=== PATIENT | female | born 1965 | race Caucasian/White ===

== ENCOUNTER → 2016-09-15 | Outpatient (CLI) | payer OTHER | LOC: MC.RAD 08:37 | DX: Z12.31 Encounter for screening mammogram for malignant neoplasm of breast (principal) ==

== ENCOUNTER → 2018-06-12 | Outpatient (CLI) | payer OTHER | LOC: COL.RAD 13:09 | DX: N83.202 Unspecified ovarian cyst, left side (principal); N95.0 Postmenopausal bleeding; R93.89 Abnormal findings on diagnostic imaging of other specified body structures ==

== ENCOUNTER → 2018-07-19 | Outpatient (CLI) | payer OTHER | LOC: MC.RAD 08:11 | DX: Z12.31 Encounter for screening mammogram for malignant neoplasm of breast (principal) ==

== ENCOUNTER → 2020-02-10 | Outpatient (CLI) | payer BC | LOC: MC.RAD 14:02 | DX: Z12.31 Encounter for screening mammogram for malignant neoplasm of breast (principal) ==

== ENCOUNTER 2020-08-05 08:42 | Day surgery (SDC) | payer BC ==
[~2020-08-05] VITALS: Ht 167.6 cm; Wt 117.8 kg
[2020-08-05 09:35] VITALS: BP 127/74; PULSE 64; TEMP 97.4
[2020-08-05] MEDS ORDERED: BALSALAZIDE DI750 MG PO (09:53)
[2020-08-05] MEDS ORDERED: PRILOSEC 20MG20 MG PO (09:53)
[2020-08-05] MEDS ORDERED: B-121000 MCG PO (09:54)
[2020-08-05] MEDS ORDERED: PROBIOTIC BLEN1 EACH PO (09:54)
[2020-08-05] MEDS ORDERED: MASON NATURAL1000 M1 PO (09:58)
[2020-08-05] MEDS ORDERED: MELATONIN1 MG PO (09:59)
[2020-08-05 11:40] VITALS: BP 131/87; PULSE 69; TEMP 97.1
--- NOTE | 2020-08-05 11:40 | NUR ---
Pt to [facility] via cart from OR. Pt drowsy, but awake. Pt denies pain and nausea. Right foot has acewrap dressing and post op shoe on. Right toes are warm, dry and pink with movement noted. Pt feels "pressure" to toes but not full sensation due to block. Soda given per pt request. in room. Will continue to monitor. Call light within reach.
[2020-08-05 11:55] VITALS: BP 130/75; PULSE 62
--- NOTE | 2020-08-05 11:55 | NUR ---
Pt continues to rest. Denies needs. Call light within reach.
[2020-08-05 12:10] VITALS: BP 121/71; PULSE 59
--- NOTE | 2020-08-05 12:10 | NUR ---
Muffin given per pt request. Will continue to monitor. Call light within reach.
[2020-08-05 12:25] VITALS: BP 128/72; PULSE 49
--- NOTE | 2020-08-05 12:25 | NUR ---
Pt tolerating po food and fluids without difficulties. Denies needs. Call light within reach.
[2020-08-05 12:40] VITALS: BP 129/67; PULSE 65
--- NOTE | 2020-08-05 12:40 | NUR ---
Pt up to restroom with stand by assist. Gait slow and steady. Pt voids without difficulties. Pt back to room. Call light within reach.
--- NOTE | 2020-08-05 13:00 | NUR ---
IV site discontinued with all parts intact. Discharge instructions reviewed. Pt voices understanding. Pt up to dress with assist. Call light within reach.
--- NOTE | 2020-08-05 13:20 | NUR ---
Pt escorted to private car via wheel chair. Pt accompanied home by her .
== END 2020-08-05 13:20 | disposition home or self-care (01) ==
LOC: SDCO 08:42
DX: M20.11 Hallux valgus (acquired), right foot (principal); M79.671 Pain in right foot; K21.9 Gastro-esophageal reflux disease without esophagitis; E66.01 Morbid (severe) obesity due to excess calories; K51.20 Ulcerative (chronic) proctitis without complications; E78.5 Hyperlipidemia, unspecified; N39.46 Mixed incontinence; N95.0 Postmenopausal bleeding; N95.9 Unspecified menopausal and perimenopausal disorder; F32.9 Major depressive disorder, single episode, unspecified; Z98.49 Cataract extraction status, unspecified eye; Z79.899 Other long term (current) drug therapy; Z68.41 Body mass index [BMI] 40.0-44.9, adult; Z87.891 Personal history of nicotine dependence; Z91.048 Other nonmedicinal substance allergy status; Z83.3 Family history of diabetes mellitus; Z82.49 Family history of ischemic heart disease and other diseases of the circulatory system; Z80.3 Family history of malignant neoplasm of breast; Z80.0 Family history of malignant neoplasm of digestive organs
CPT/HCPCS: J1885; J2405; J2704; J3010; J7120

== ENCOUNTER → 2020-08-17 | Outpatient (CLI) | payer BC ==
[~2020-08-17] MED LIST: B-121000 MCG PO; BALSALAZIDE DI750 MG PO; MASON NATURAL1000 M1 PO; MELATONIN1 MG PO; PRILOSEC 20MG20 MG PO; PROBIOTIC BLEN1 EACH PO
== END ==
LOC: ZCOL.LAB 15:36
DX: L97.519 Non-pressure chronic ulcer of other part of right foot with unspecified severity (principal); Z87.59 Personal history of other complications of pregnancy, childbirth and the puerperium; Z98.890 Other specified postprocedural states

== ENCOUNTER 2021-11-30 08:00 | Outpatient (RCR) | payer OTHER | END 2021-12-01 | disposition still patient (30) | LOC: WSPT | DX: M54.50 Low back pain, unspecified (principal) ==

== ENCOUNTER 2022-01-21 08:20 | Day surgery (SDC) | payer BC ==
[~2022-01-21] VITALS: Ht 167.6 cm; Wt 118.9 kg
[2022-01-21 09:16] VITALS: BP 126/82; PULSE 74; TEMP 97.1
[2022-01-21] MEDS ORDERED: MAGNESIUM250 M1 PO (09:23)
[2022-01-21] MEDS ORDERED: ZOCOR 20MG20 MG PO (09:23)
[2022-01-21] MEDS ORDERED: ULTRAM 50MG TAB50 MG PO (09:24)
--- NOTE | 2022-01-21 09:26 | NUR ---
[employer]Mix NOT WORKING AND UNABLE TO SCAN MEDS.
[2022-01-21 10:15] VITALS: BP 126/82; PULSE 76; TEMP 97.8
[2022-01-21 10:30] VITALS: BP 126/71; PULSE 66
--- NOTE | 2022-01-21 16:33 | NUR ---
1015- Pt brought back to bay 3 via cart. Assist to recliner. Monitor attached. [place] juice given per pt request. Call light in reach. 1030- Second set of VS taken. IV dc'd with cath intact. Discharge instructions given with verbal understanding. 1045- Assist to w/c after patient dressed and ready to go home. Folder in hand of patient. To front patient entrance and dismissed with family per private vehicle.
[2022-01-21 17:03] VITALS: BP 111/68; PULSE 73
== END 2022-01-21 16:47 | disposition home or self-care (01) ==
LOC: SDCO 08:20
DX: D12.0 Benign neoplasm of cecum (principal); K57.30 Diverticulosis of large intestine without perforation or abscess without bleeding; K51.219 Ulcerative (chronic) proctitis with unspecified complications; F17.210 Nicotine dependence, cigarettes, uncomplicated
CPT/HCPCS: J2704; J3010; J7120